=== PATIENT | female | born 1985 | race Caucasian/White ===

== ENCOUNTER 2022-09-01 11:50 | Inpatient (IN) | payer OTHER ==
[2022-09-01] MEDS ORDERED: ELECTROLYTE-148 SOLN 1,000 ML IV SCH ×2 (13:00→17:00)
[2022-09-01] MEDS ORDERED: TERBUTALINE SULFATE 1 MG/1 ML VIAL SQ ONE (13:23)
[2022-09-01] MEDS: BETAMET ACET/BETAMET NA PH 30 MG/5 ML VIAL IM SCH (13:59)
[2022-09-01] MEDS ORDERED: AMPICILLIN - 2 GM in SODIUM CHLORIDE 100 ML IVPB ONE (14:00)
[2022-09-01 14:26] LABS: BASO % 0.5 % (0-2.0); EOS % 0.4 % (0-4.5); HEMATOCRIT 38.1 % (32.4-45.2); HEMOGLOBIN 12.5 GM/dL (10.7-15.3); LYMPH % 18.8 % (8-40); MCH 26.4 pg (25.7-33.7); MCHC 32.7 g/dl (32.0-36.0); MEAN CELL VOLUME 80.5 fl (80-96); MEAN PLT VOLUME 9.9 fl (7.5-11.1); MONO % 6.5 % (3.8-10.2); NEUT % 73.8 % (42.8-82.8); PLATELET COUNT 351 10^3/uL (134-434); RBC 4.74 M/mm3 (3.60-5.2); RDW 15.3 % (11.6-15.6); WHITE BLOOD COUNT 11.4 K/mm3 (4.0-10.0)
[2022-09-01] MEDS ORDERED: AMPICILLIN SODIUM 2 GM VIAL ONE (14:26)
[2022-09-01] MEDS ORDERED: SODIUM CHLORIDE 100 ML IVPB ONE (14:27)
[2022-09-01 14:33] LABS: INR 1.12 (0.83-1.09)
[2022-09-01 14:35] LABS: INR 1.09 (0.83-1.09); PROTHROMBIN TIME (PATIENT) 12.6 SEC (9.7-13.0)
[2022-09-01 14:37] LABS: ACTIVATED PTT 25.5 SECONDS (25.2-36.5)
[2022-09-01 14:50] LABS: CALCIUM 8.8 mg/dL (8.5-10.1)
[2022-09-01 14:52] LABS: BLOOD UREA NITROGEN 9.5 mg/dL (7-18)
[2022-09-01 14:54] LABS: CREATININE 0.6 mg/dL (0.55-1.3)
[2022-09-01 15:46] LABS: HIV INTERPRETATION NEGATIVE (NEGATIVE)
[2022-09-01 16:09] VITALS: BMI 36.9
[2022-09-01] MEDS ORDERED: ePHEDrine SULFATE 50 MG/1 ML AMPULE ONE (16:19)
[2022-09-01] MEDS ORDERED: FENTANYL CITRATE/PF 50 MCG/ML VIAL ONE (16:19)
[2022-09-01] MEDS ORDERED: morphine SULFATE/PF 1 MG/2 ML (2cc Syringe - QUVA) ONE (16:19)
[2022-09-01] MEDS ORDERED: ceFAZolin SODIUM 1 GM VIAL ONE (16:19)
[2022-09-01] MEDS ORDERED: ONDANSETRON 4 MG/2 ML VIAL ONE ×2 (16:19→19:10)
[2022-09-01] MEDS ORDERED: SODIUM CHLORIDE 0.9% P/F 10 ML VIAL IJ ONE (16:19)
[2022-09-01] MEDS ORDERED: KETOROLAC TROMETHAMINE 30 MG/1 ML VIAL ONE (16:19)
[2022-09-01] MEDS ORDERED: OXYTOCIN 20 UNITS in 0.9% NS 20 UNIT/1,000 ML INFUS.BAG IV ONE (16:26)
[2022-09-01] MEDS ORDERED: CITRIC ACID/SODIUM CITRATE 30 ML UNIT-DOSE CUP PO ONE (16:58)
[2022-09-01] MEDS ORDERED: BENZOCAINE 28 GM HEMORRHOIDAL OINTMENT TP PRN (18:43)
[2022-09-01] MEDS ORDERED: IBUPROFEN 800 MG/8 ML IJ IVPB PRN (18:43)
[2022-09-01] MEDS ORDERED: METHYLERGONOVINE MALEATE 0.2 MG/1 ML AMP IM PRN (18:43)
[2022-09-01] MEDS ORDERED: BENZOCAINE 20% 57 GM BOTTLE TP PRN (18:43)
[2022-09-01] MEDS ORDERED: ACETAMINOPHEN 325 MG TABLET (FP) PO PRN (18:43)
[2022-09-01] MEDS ORDERED: SENNOSIDES/DOCUSATE COMBO (SENNA PLUS) TABLET (UD) PO PRN (18:43)
[2022-09-01] MEDS ORDERED: WITCH HAZEL 50% (TUCKS) 40 PAD/JAR PAD TP PRN (18:43)
[2022-09-01] MEDS ORDERED: OXYTOCIN 20 UNITS in 0.9% NS 20 UNIT/1,000 ML INFUS.BAG IV SCH (18:45)
[2022-09-01] MEDS ORDERED: morphine SULFATE/PF 1 MG/2 ML (2cc Syringe - QUVA) EP ONE (18:45)
[2022-09-01 18:48] LABS: CORD BASE EXCESS -16.8 mmol/L (0-2); CORD PCO2 77.6 mmHg (30-78)
[2022-09-01 18:59] LABS: CORD HCO3 15.4 mmHg (20-29); CORD PCO2 73.3 mmHg (30-78)
[2022-09-01 19:06] LABS: CORD pH 6.941 (7.14-7.44)
[2022-09-01 19:07] LABS: CORD pH 6.958 (7.14-7.44)
[2022-09-01] MEDS ORDERED: ONDANSETRON 4 MG/2 ML VIAL IVPUSH PRN (19:08)
[2022-09-01] MEDS ORDERED: PROMETHAZINE HCL 25 MG/1 ML VIAL ONE (19:41)
[2022-09-01] MEDS ORDERED: PROMETHAZINE HCL 25 MG/1 ML VIAL IVPB PRN (20:30)
[2022-09-02] MEDS ORDERED: oxyCODONE HCL 5 MG TABLET PO PRN ×2 (06:43)
[2022-09-02 07:41] LABS: BASO % 0.2 % (0-2.0); HEMOGLOBIN 10.4 GM/dL (10.7-15.3); LYMPH % 8.6 % (8-40); MCH 27.3 pg (25.7-33.7); MCHC 33.4 g/dl (32.0-36.0); MEAN CELL VOLUME 81.7 fl (80-96); MEAN PLT VOLUME 9.7 fl (7.5-11.1); MONO % 6.6 % (3.8-10.2); NEUT % 84.6 % (42.8-82.8); PLATELET COUNT 336 10^3/uL (134-434); RDW 15.2 % (11.6-15.6); WHITE BLOOD COUNT 16.3 K/mm3 (4.0-10.0)
[2022-09-02] MEDS: ENOXAPARIN NA (PORCINE) 40 MG/0.4 ML DISP.SYRIN SQ SCH (11:39)
[2022-09-02] MEDS: FERROUS SO4 325 MG TABLET (FP) PO SCH ×2 (11:39→18:36)
[2022-09-02] MEDS: PRENATAL VITAMINS W/ FOLIC ACID TABLET (FP) PO SCH (11:39)
[2022-09-02] MEDS: IBUPROFEN 600 MG TABLET (FP) PO PRN ×2 (14:03→20:28)
[2022-09-02] MEDS: SIMETHICONE 80 MG TAB.CHEW (FP) PO PRN ×2 (14:04→20:29)
[2022-09-02 17:12] VITALS: RESP 16
[2022-09-02] MEDS: BETAMET ACET/BETAMET NA PH 30 MG/5 ML VIAL IM SCH (17:16)
[2022-09-02] MEDS ORDERED: BISACODYL 10 MG SUPP.RECT RC PRN (18:43)
[2022-09-03] MEDS: IBUPROFEN 600 MG TABLET (FP) PO PRN ×4 (06:01→21:24)
[2022-09-03] MEDS: SIMETHICONE 80 MG TAB.CHEW (FP) PO PRN ×3 (06:01→21:24)
[2022-09-03] MEDS: FERROUS SO4 325 MG TABLET (FP) PO SCH ×2 (10:02→17:16)
[2022-09-03] MEDS: ENOXAPARIN NA (PORCINE) 40 MG/0.4 ML DISP.SYRIN SQ SCH (10:03)
[2022-09-03] MEDS: PRENATAL VITAMINS W/ FOLIC ACID TABLET (FP) PO SCH (10:03)
[2022-09-04] MEDS: IBUPROFEN 600 MG TABLET (FP) PO PRN (06:17)
[2022-09-04] MEDS: SIMETHICONE 80 MG TAB.CHEW (FP) PO PRN (06:17)
[2022-09-04 08:13] LABS: BASO % 0.5 % (0-2.0); EOS % 2.5 % (0-4.5); HEMATOCRIT 32.8 % (32.4-45.2); HEMOGLOBIN 10.8 GM/dL (10.7-15.3); LYMPH % 23.8 % (8-40); MCH 27.1 pg (25.7-33.7); MEAN PLT VOLUME 8.4 fl (7.5-11.1); MONO % 7.8 % (3.8-10.2); NEUT % 65.4 % (42.8-82.8); PLATELET COUNT 359 10^3/uL (134-434); RDW 15.3 % (11.6-15.6); WHITE BLOOD COUNT 10.8 K/mm3 (4.0-10.0)
[2022-09-04] MEDS: FERROUS SO4 325 MG TABLET (FP) PO SCH (08:47)
[2022-09-04] MEDS: PRENATAL VITAMINS W/ FOLIC ACID TABLET (FP) PO SCH (09:38)
[2022-09-04] MEDS: ENOXAPARIN NA (PORCINE) 40 MG/0.4 ML DISP.SYRIN SQ SCH (09:38)
[2022-09-04 10:02] VITALS: BP 110/63; PULSE 82; TEMP 98.3
== END 2022-09-04 13:14 | disposition home or self-care (01) | DRG 786 ==
LOC: JDEL 11:50 → JLDR 11:51 → J3W 20:45
PROVIDERS: ADMIT Obstetrics & Gynecology; ATTEND Obstetrics & Gynecology
PROC: 10D00Z1 Extraction of Products of Conception, Low, Open Approach (ICD-10-PCS; principal; 2022-09-01)
DX: O34.211 Maternal care for low transverse scar from previous cesarean delivery (principal); O60.14X0 Preterm labor third trimester with preterm delivery third trimester, not applicable or unspecified; O24.420 Gestational diabetes mellitus in childbirth, diet controlled; O32.1XX0 Maternal care for breech presentation, not applicable or unspecified; O69.81X0 Labor and delivery complicated by cord around neck, without compression, not applicable or unspecified; O99.214 Obesity complicating childbirth; E66.9 Obesity, unspecified; Z3A.36 36 weeks gestation of pregnancy; Z37.0 Single live birth
CPT/HCPCS: 36415; 36600; 80048; 82803; 82962; 85025; 85610; 85730; 86780; 86850; 86900; 86901; 87389; 88307-TC; 96372; C9803-CS; U0003; U0005